=== PATIENT | female | born 1965 | race Caucasian/White ===

== ENCOUNTER 2016-12-08 13:22 | Emergency (ER) | payer OTHER ==
[~2016-12-08] VITALS: Ht 157.5 cm; Wt 110.7 kg
[~2016-12-08 13:22] MED LIST: ADDERALL 15 MG15 MG PO; ADVIL200 M1 PO; ASPIRIN325 PO; HUMALOG100 UNIT/1 SUBQ; LANTUS100 UNIT/M SUBQ; METFORMIN HCL1000 M1 PO; MOBIC7.5 MG PO; NOVOLOG100 UNIT/1 SUBQ; TRAMADOL 50 MG50 MG PO; ULTRAM 50MG TAB50 MG PO
[2016-12-08 14:13] LABS: URINE BILIRUBIN NEGATIVE (Negative); URINE BLOOD TRACE (Negative); URINE COLOR YELLOW; URINE GLUCOSE-RANDOM* 1+ (Negative); URINE KETONES NEGATIVE (Negative); URINE NITRITE NEGATIVE (Negative); URINE PROTEIN (DIPSTICK) 2+ (Negative); URINE SPECIFIC GRAVITY >= 1.030 (1.003-1.035); URINE UROBILINOGEN 0.2 E.U./dl (0.2-1.0)
[2016-12-08 14:22] LABS: CASTS None Seen /LPF (None Seen); CRYSTALS None Seen /LPF (None Seen); SQUAMOUS >10 Many /LPF (0-3); URINE WBC >25 Many /HPF (0-5)
[2016-12-08 14:23] LABS: BACTERIA 1-9 Few /HPF (None Seen); URINE RBC None Seen /HPF (0-2); YEAST Present (None Seen)
[2016-12-08] MEDS ORDERED: MOBIC7.5 MG PO (14:41)
[2016-12-08] MEDS ORDERED: DIFLUCAN150 MG PO (14:41)
[2016-12-08] MEDS ORDERED: KEFLEX500 MG PO (14:41)
== END 2016-12-08 14:57 | disposition home or self-care (01) ==
LOC: ER 13:22
PROVIDERS: Physician Assistant
DX: B37.49 Other urogenital candidiasis (principal); M54.9 Dorsalgia, unspecified; E11.9 Type 2 diabetes mellitus without complications; I10 Essential (primary) hypertension; M19.90 Unspecified osteoarthritis, unspecified site; F17.210 Nicotine dependence, cigarettes, uncomplicated; Z90.49 Acquired absence of other specified parts of digestive tract; Z98.890 Other specified postprocedural states; Z79.4 Long term (current) use of insulin; Z91.040 Latex allergy status

== ENCOUNTER 2018-02-27 20:27 | Inpatient (IN) | payer OTHER ==
[~2018-02-27] VITALS: Ht 157.5 cm; Wt 104.3 kg
[~2018-02-27 20:27] MED LIST changes: +DIFLUCAN150 MG PO; +KEFLEX500 MG PO; +LIPITOR 20 MG T20 M1 PO; +MIRALAX17 GM PO
[2018-02-27 20:29] VITALS: BP 168/122
[2018-02-27 21:01] LABS: ABSOLUTE NEUTROPHILS 6.6 thou/uL (1.4-8.2); BASOPHILS 1.1 % (0.0-2.0); EOSINOPHILS 1.4 % (0.0-3.0); HEMATOCRIT 40.4 % (37.0-47.0); LYMPHOCYTES 22.6 % (24.0-44.0); MCH 28.7 pg (26.0-34.0); MCHC 34.7 g/dL (28.0-37.0); MCV 82.7 fL (80.0-100.0); MONOCYTES 5.9 % (1.0-8.0); PLATELET COUNT 284 thou/uL (150-400); RBC 4.88 mil/uL (4.20-5.00); WBC 9.5 thou/uL (4.0-11.0)
[2018-02-27 21:07] LABS: BE(vivo) -4.1 mmol/L (-2 to +3); HCO3 22.4 mmol/L (22.0-26.0); PCO2 VENOUS 46.2 mmHg (41.0-51.0); PO2 VENOUS 22.9 mmHg (35.0-45.0)
[2018-02-27 21:15] LABS: CALCIUM 9.4 mg/dL (8.5-10.1); CREATININE 2.2 mg/dL (0.6-1.0); POTASSIUM 3.5 mmol/L (3.5-5.1)
[2018-02-27 21:21] LABS: ALBUMIN 3.3 g/dL (3.4-5.0); TOTAL BILIRUBIN 0.2 mg/dL (<0.1-1.0); TOTAL PROTEIN 9.4 g/dL (6.4-8.2)
[2018-02-27] MEDS ORDERED: LANTUS100 UNIT/M SUBQ (21:26)
[2018-02-27] MEDS ORDERED: NORVASC10 MG PO (21:27)
[2018-02-27] MEDS ORDERED: PRINIVIL20 MG PO (21:27)
[2018-02-27] MEDS ORDERED: NOVOLOG100 UNIT/1 SUBQ (21:28)
[2018-02-27] MEDS ORDERED: TRAMADOL 50 MG50 MG PO (21:28)
[2018-02-27] MEDS ORDERED: JANUVIA25 MG PO (21:29)
[2018-02-27] MEDS ORDERED: ALKA-SELTZER P1 EA11 (21:30)
[2018-02-27 23:24] VITALS: BP 138/69
[2018-02-27 23:57] VITALS: BP 145/73
[2018-02-28] MEDS ORDERED: EXCEDRIN CAPLE1 EACH PO (00:08)
[2018-02-28 06:27] LABS: HEMATOCRIT 35.4 % (37.0-47.0); MCH 27.1 pg (26.0-34.0); MCHC 32.7 g/dL (28.0-37.0); RBC 4.26 mil/uL (4.20-5.00); WBC 8.3 thou/uL (4.0-11.0)
[2018-02-28 06:31] LABS: HEMOGLOBIN 11.6 gm/dL (12.0-15.0)
[2018-02-28 06:38] LABS: CALCIUM 8.3 mg/dL (8.5-10.1); CREATININE 1.8 mg/dL (0.6-1.0); POTASSIUM 3.6 mmol/L (3.5-5.1)
[2018-02-28 08:00] VITALS: BP 158/88
[2018-02-28] MEDS ORDERED: NOVOLOG100 UNIT/1 SUBQ ×2 (16:42→17:39)
[2018-02-28 18:22] LABS: CALCIUM 9.4 mg/dL (8.5-10.1); CREATININE 1.8 mg/dL (0.6-1.0); POTASSIUM 4.3 mmol/L (3.5-5.1)
[2018-02-28 18:44] VITALS: BP 158/88
[2018-03-01 00:06] LABS: GLYCOHEMOGLOBIN (HGB A1C) 11.9 % (4.8-5.6)
== END 2018-02-28 20:17 | disposition home or self-care (01) | DRG 637 ==
LOC: ER 20:27 → EROBS 23:04 → 4W 23:04
PROVIDERS: Emergency Medicine; Hospitalist; Nurse Practitioner Family
DX: E11.65 Type 2 diabetes mellitus with hyperglycemia (principal); N17.0 Acute kidney failure with tubular necrosis; E87.1 Hypo-osmolality and hyponatremia; M19.90 Unspecified osteoarthritis, unspecified site; F90.9 Attention-deficit hyperactivity disorder, unspecified type; G43.909 Migraine, unspecified, not intractable, without status migrainosus; G89.4 Chronic pain syndrome; N18.9 Chronic kidney disease, unspecified; E11.22 Type 2 diabetes mellitus with diabetic chronic kidney disease; I12.9 Hypertensive chronic kidney disease with stage 1 through stage 4 chronic kidney disease, or unspecified chronic kidney disease; F17.210 Nicotine dependence, cigarettes, uncomplicated; E86.0 Dehydration; Z91.14 Patient's other noncompliance with medication regimen; Z98.84 Bariatric surgery status; Z90.49 Acquired absence of other specified parts of digestive tract; Z89.512 Acquired absence of left leg below knee; Z89.421 Acquired absence of other right toe(s); Z79.4 Long term (current) use of insulin; Z79.82 Long term (current) use of aspirin; Z79.899 Other long term (current) drug therapy; Z88.8 Allergy status to other drugs, medicaments and biological substances
CPT/HCPCS: 10040